=== PATIENT | female | born 1995 | race Caucasian/White ===

== ENCOUNTER 2017-02-15 18:04 | Emergency (ER) | payer SELFPAY ==
[2017-02-15] MEDS ORDERED: NO MEDICATIONS (18:08)
[2017-02-15 18:54] LABS: URINE SOURCE CLEAN CATCH
[2017-02-15 18:57] LABS: URINE APPEARANCE CLEAR; URINE BILIRUBIN NEG (NEG); URINE BLOOD 2+ (NEG); URINE COLOR YELLOW; URINE GLUCOSE NEG (NORM); URINE KETONE NEG (NEG); URINE LEUKOCYTE ESTERASE 1+ (NEG); URINE NITRATE NEG (NEG); URINE PROTEIN NEG (NEG); URINE SPECIFIC GRAVITY 1.025 (1.003-1.035); URINE UROBILINOGEN 0.2 MG/DL (NORM)
[2017-02-15 19:00] LABS: MICRO INDICATED? YES
[2017-02-15 19:06] LABS: CULTURE INDICATED? YES; URINE BACTERIA 1+ (NEG); URINE MUCUS PRESENT; URINE SQUAMOUS EPITHELIAL CELL MANY /[HPF]
== END 2017-02-15 19:53 | disposition home or self-care (01) ==
LOC: SED 18:04
PROVIDERS: Emergency Medicine
DX: R51 Headache (principal); N39.0 Urinary tract infection, site not specified; R11.0 Nausea; Z98.890 Other specified postprocedural states
CPT/HCPCS: 81003; 84703; 87086; 96372; 99284; J0780; J1200